=== PATIENT | female | born 2000 | race Caucasian/White ===

== ENCOUNTER 2023-05-30 10:13 | Emergency (ER) | payer OTHER ==
[~2023-05-30] VITALS: Ht 154.9 cm; Wt 61.2 kg
[2023-05-30] MEDS ORDERED: JUNEL FE 1 MG-1 EACH PO (11:02)
== END 2023-05-30 14:25 | disposition home or self-care (01) ==
LOC: EMR PED 10:13 → ER 10:27
DX: J40 Bronchitis, not specified as acute or chronic (principal)